=== PATIENT | female | born 1985 | race Caucasian/White ===

== ENCOUNTER 2018-05-03 11:47 | Inpatient (IN) | payer MEDICAID ==
[2018-05-03 12:46] LABS: ADD MAN DIFF? NO
[2018-05-03 12:48] LABS: WHITE BLOOD COUNT 9.5 10^3/ul (4.8-10.8)
[2018-05-03 12:48] LABS: BASOPHILS % 0.2 % (0.0-2.0); EOSINOPHILS # 0.1 10^3/ul (0.0-0.5); EOSINOPHILS % 0.5 % (0.0-7.0); HEMATOCRIT 36.2 % (37.0-47.0); HEMOGLOBIN 11.6 g/dl (12.0-16.0); LYMPHOCYTES # 2.1 10^3/ul (0.8-2.9); LYMPHOCYTES % 21.7 % (15.0-51.0); MEAN CORPUSCULAR HEMOGLOBIN 28.4 pg (29.0-33.0); MEAN CORPUSCULAR VOLUME 88.5 fl (82.0-101.0); MEAN PLATELET VOLUME 11.3 fl (7.4-10.4); MONOCYTE # 0.7 10^3/ul (0.3-0.9); MONOCYTES % 7.6 % (0.0-11.0); NEUTROPHIL # 6.6 10^3/ul (1.6-7.5); NEUTROPHILS % 69.1 % (39.0-77.0); PLATELET COUNT 242 10^3/UL (140-415); RED BLOOD COUNT 4.09 10^6/ul (4.20-5.40); RED CELL DISTRIBUTION WIDTH 14.8 % (11.5-14.5)
[2018-05-03] MEDS ORDERED: CARBOPROST 250 MCG INJ IM (13:00)
[2018-05-03] MEDS ORDERED: OXYTOCIN 30 UNITS/LR 500 ML IV (13:00)
[2018-05-03] MEDS ORDERED: METHYLERGONOVINE 0.2 MG INJ IM (13:00)
[2018-05-03] MEDS ORDERED: MISOPROSTOL 200 MCG TAB PR (13:00)
[2018-05-03] MEDS: LACTATED RINGER'S 1,000 ML IV ×2 (13:19→19:54)
[2018-05-03] MEDS: MISOPROSTOL 50 MCG CAPSULE PO ×3 (13:22→21:00)
[2018-05-03 13:27] LABS: HEPATITIS B SURFACE ANTIGEN NEGATIVE (NEGATIVE)
[2018-05-03 14:12] LABS: INR 0.89; PROTIME 12.1 Sec (11.9-14.9); PT RATIO 0.9
[2018-05-03 14:13] LABS: PARTIAL THROMBOPLASTIN TIME 27.1 Sec (23.0-35.0)
[2018-05-03 17:14] LABS: RAPID PLASMA REAGIN NONREACTIVE (NR)
[2018-05-03] MEDS: MINERAL OIL LIGHT 10 ML VIAL TOP (19:56)
[2018-05-03] MEDS ORDERED: LACTATED RINGER'S 1,000 ML IV (20:26)
[2018-05-04] MEDS: MISOPROSTOL 50 MCG CAPSULE PO ×5 (00:10→18:54)
[2018-05-04] MEDS: LACTATED RINGER'S 1,000 ML IV ×3 (03:51→19:35)
[2018-05-04] MEDS ORDERED: MINERAL OIL LIGHT 10 ML VIAL TOP (04:00)
[2018-05-04] MEDS: BUTORPHANOL 2 MG INJ IV (23:11)
[2018-05-05] MEDS: OXYTOCIN 30 UNITS/LR 500 ML IV ×4 (02:30→09:54)
[2018-05-05] MEDS: BUTORPHANOL 2 MG INJ IV ×2 (02:40→04:13)
[2018-05-05] MEDS: LACTATED RINGER'S 1,000 ML IV (02:52)
[2018-05-05] MEDS: LIDOCAINE 1% (MPF) 30 ML INJ INJ (04:57)
[2018-05-05] MEDS: MINERAL OIL LIGHT 10 ML VIAL TOP (05:00)
[2018-05-05] MEDS: IBUPROFEN 600 MG TAB PO ×3 (06:17→17:45)
[2018-05-05] MEDS ORDERED: HYDROCODONE/APAP (5/325) TAB PO (07:00)
[2018-05-05] MEDS ORDERED: METHYLERGONOVINE 0.2 MG INJ IM (07:00)
[2018-05-05] MEDS ORDERED: OXYTOCIN 30 UNITS/LR 500 ML IV (07:00)
[2018-05-05] MEDS ORDERED: MISOPROSTOL 200 MCG TAB PR (07:00)
[2018-05-05] MEDS ORDERED: DIPHENHYDRAMINE 25 MG CAP PO (07:00)
[2018-05-05] MEDS ORDERED: CARBOPROST 250 MCG INJ IM (07:00)
[2018-05-05] MEDS ORDERED: ONDANSETRON 4 MG INJ IV (07:00)
[2018-05-05] MEDS ORDERED: ZOLPIDEM 5 MG TAB PO (07:00)
[2018-05-05] MEDS ORDERED: NACL 0.9% 3 ML SYG IV (07:00)
[2018-05-05 07:55] LABS: HEMATOCRIT 31.7 % (37.0-47.0); HEMOGLOBIN 10.2 g/dl (12.0-16.0)
[2018-05-05] MEDS: SENNA/DOCUSATE NA (8.6MG/50MG) TAB PO ×2 (09:04→22:38)
[2018-05-05] MEDS: ACETAMINOPHEN 325 MG TAB PO (15:26)
[2018-05-05] MEDS: WITCH HAZEL/GLYCERIN PAD PR (15:27)
[2018-05-05] MEDS: LANOLIN HPA 1 PKT TOP (15:27)
[2018-05-06] MEDS: IBUPROFEN 600 MG TAB PO ×5 (00:03→23:45)
[2018-05-06] MEDS: SENNA/DOCUSATE NA (8.6MG/50MG) TAB PO ×2 (08:52→20:39)
[2018-05-07] MEDS: IBUPROFEN 600 MG TAB PO ×2 (05:49→11:16)
[2018-05-07] MEDS: SENNA/DOCUSATE NA (8.6MG/50MG) TAB PO (08:43)
[2018-05-07] MEDS: WITCH HAZEL/GLYCERIN PAD PR (11:20)
== END 2018-05-07 15:58 | disposition home or self-care (01) | DRG 807 ==
LOC: L-D 05-04 23:02 → PP1 05-05 13:33 → L-D 11:47
PROVIDERS: Obstetrics & Gynecology
PROC: 10E0XZZ Delivery of Products of Conception, External Approach (ICD-10-PCS; principal; 2018-05-05)
PROC: 0KQM0ZZ Repair Perineum Muscle, Open Approach (ICD-10-PCS; 2018-05-05)
DX: O41.03X0 Oligohydramnios, third trimester, not applicable or unspecified (principal); O70.1 Second degree perineal laceration during delivery; Z3A.38 38 weeks gestation of pregnancy; Z37.0 Single live birth
CPT/HCPCS: 76815; 85014; 85018; 85025; 85610; 85730; 86592; 86850; 86900; 86901; 87340